=== PATIENT | female | born 1975 | race American Indian/Alaskan Native ===

== ENCOUNTER 2017-04-06 09:25 | Outpatient (CLI) | payer MEDICARE ==
--- NOTE | 2017-04-06 10:59 | Ultrasound Report ---
Bilateral digital diagnostic mammogram with CAD and bilateral whole breast loops including all 4 quadrants and subareolar regions. History: Bilateral mastodynia. This is a baseline study. Findings: The breast parenchyma is heterogeneously dense. No masses, suspicious calcifications, or architectural distortion. Ultrasound reveals no evidence of cystic or solid breast masses. Bilateral axillary lymph nodes are present. Impression: No suspicious findings. BI-RADS code: 1. Recommendation: Annual mammography.
== END 2017-04-06 09:26 | disposition home or self-care (01) ==
LOC: MAMMO 09:25
PROVIDERS: ATTEND Internal Medicine Hematology & Oncology
DX: N64.4 Mastodynia (principal); F17.200 Nicotine dependence, unspecified, uncomplicated
CPT/HCPCS: 76641; G0204; 77066

== ENCOUNTER 2018-12-02 13:33 | Inpatient (IN) | payer MEDICARE ==
[2018-12-02] MEDS ORDERED: PERCOCET 5/325 PO PRN (14:02)
[2018-12-02 15:04] LABS: Mean Corpuscular HGB Conc 35 % (30-34); Mean Corpuscular Volume 102 fl (79-97); Platelet Count 260 K/mm3 (140-440); Red Blood Count 1.95 M/mm3 (3.65-5.03); Red Cell Distribution Width 19.5 % (13.2-15.2)
[2018-12-02 15:39] LABS: % Iron Saturation 74.43 %; Alanine Aminotransferase 18 units/L (7-56); Albumin 4.3 g/dL (3.9-5); BUN/Creatinine Ratio 12; Blood Urea Nitrogen 11 mg/dL (7-17); Hemolysis Index 76
[2018-12-02 15:52] LABS: RBC Morphology Normal; Total Cells Counted 100
[2018-12-02] MEDS: HABITROL TD SCH (16:37)
[2018-12-02] MEDS: PROTONIX PO SCH (16:38)
--- NOTE | 2018-12-02 18:21 | History and Physical Report ---
History of Present Illness Date of examination: 12/02/18 Date of admission: 12/02/18 14:35 Chief complaint: Diffuse joint pain. History of present illness: Patient seen/examined, resting in bed. She presented to the office, with complaints of diffuse joint pain, due to the fact that she was not improving in the office, she was admitted to the hospital, for sxs management/control. she rated her pain at 10/10, with SCD.She will be hydrated, pain control, monitor la bs.Once stable, will d/c home. Past History Past Medical History: anemia Social history: no significant social history, single, Lives alone Family history: no significant family history Medications and Allergies Allergies Allergy/AdvReac Type Severity Reaction Status Date / Time sulfamethoxazole Allergy Intermediate Hives Verified 09/10/15 10:27 [From Bactrim] trimethoprim [From Bactrim] Allergy Intermediate Hives Verified 09/10/15 10:27 aspirin Allergy Mild Hives Verified 09/10/15 10:27 Home Medications Medication Instructions Recorded Confirmed Last Taken Type Ibuprofen [Motrin] 800 mg PO BID 09/10/15 09/10/15 09/09/15 History Oxycodone HCl/Acetaminophen 1 tab PO PRN PRN 09/10/15 09/10/15 09/08/15 History [OxyCODONE-Acetaminophen 7.5-325] Tramadol HCl [traMADol] 50 mg PO HS 09/10/15 09/10/15 09/09/15 History Active Meds: Active Medications Diphenhydramine HCl (Benadryl) 25 mg IV Q6H PRN PRN Reason: Itching Folic Acid (Folvite) [address] [facility] Heparin Sodium (Porcine) (Heparin) 5,000 unit SUB-Q Q12HR [facility]AN Hydromorphone HCl (Dilaudid) 2 mg IV Q3H PRN PRN Reason: Pain , Severe (7-10) Nicotine (Habitrol) [address] [facility] Last Admin: 12/02/18 16:37 Dose: 21 mg Documented by: Oxycodone/Acetaminophen (Percocet 5/325) 2 tab PO Q6H PRN PRN Reason: BREAKTHRU PAIN Last Admin: 12/02/18 17:25 Dose: 2 tab Documented by: Pantoprazole Sodium (Protonix) [address] [facility] Last Admin: 12/02/18 16:38 Dose: 40 mg Documented by: Sodium Chloride (Sodium Chloride Flush Syringe 10 Ml) [address] [facility] Sodium Chloride (Sodium Chloride Flush Syringe 10 Ml) 10 ml IV PRN PRN PRN Reason: LINE FLUSH Review of Systems Constitutional: fatigue, chronic pain Breasts: deferred Exam - Constitutional Vitals: Temp Pulse Resp BP Pulse Ox 98.5 F 81 16 122/68 95 12/02/18 16:52 12/02/18 16:52 12/02/18 16:52 12/02/18 16:52 12/02/18 16:52 General appearance: Present: mild distress, well-nourished - EENT Eyes: Present: PERRL ENT: hearing intact, clear oral mucosa - Neck Neck: Present: supple, normal ROM - Respiratory Respiratory effort: normal Respiratory: bilateral: CTA - Cardiovascular Heart Sounds: Present: S1 & S2. Absent: rub, click - Extremities Extremities: pulses symmetrical, No edema Peripheral Pulses: within normal limits - Abdominal General gastrointestinal: Present: soft, non-tender, non-distended, normal bowel sounds Female genitourinary: Present: deferred - Rectal Rectal Exam: deferred - Integumentary Integumentary: Present: clear, warm, dry - Musculoskeletal Musculoskeletal: gait normal, strength equal bilaterally - Psychiatric Psychiatric: appropriate mood/affect, intact judgment & insight - Neurologic Neurologic: CNII-XII intact, moves all extremities Results - Labs CBC & Chem 7: 12/02/18 14:48 12/02/18 14:48 Labs: Abnormal lab results 12/02/18 12/02/18 12/02/18 Range/Units 14:48 14:48 14:48 WBC 15.2 H (4.5-11.0) K/mm3 RBC 1.95 L (3.65-5.03) M/mm3 Hgb 7.0 L (10.1-14.3) gm/dl Hct 20.0 L (30.3-42.9) % MCV 102 H (79-97) fl MCH 36 H (28-32) pg MCHC 35 H (30-34) % RDW 19.5 H (13.2-15.2) % Lymphocytes % (Manual) 42.0 H (13.4-35.0) % Monocytes % (Manual) 8.0 H (0.0-7.3) % Lymphocytes # (Manual) 6.4 H (1.2-5.4) K/mm3 Monocytes # (Manual) 1.2 H (0.0-0.8) K/mm3 Basophils # (Manual) 0.2 H (0.0-0.1) K/mm3 Percent Retic 14.75 H (0.78-2.58) % Chloride 114.4 H (98-107) mmol/L Carbon Dioxide 20 L (22-30) mmol/L Glucose 114 H (65-100) mg/dL TIBC 176 L (250-450) mcg/dL Transferrin 138 L (192-382) mg/dl Total Bilirubin 1.60 H (0.1-1.2) mg/dL AST 42 H (5-40) units/L Lactate Dehydrogenase (91-180) units/L 12/02/18 Range/Units 14:48 WBC (4.5-11.0) K/mm3 RBC (3.65-5.03) M/mm3 Hgb (10.1-14.3) gm/dl Hct (30.3-42.9) % MCV (79-97) fl MCH (28-32) pg MCHC (30-34) % RDW (13.2-15.2) % Lymphocytes % (Manual) (13.4-35.0) % Monocytes % (Manual) (0.0-7.3) % Lymphocytes # (Manual) (1.2-5.4) K/mm3 Monocytes # (Manual) (0.0-0.8) K/mm3 Basophils # (Manual) (0.0-0.1) K/mm3 Percent Retic (0.78-2.58) % Chloride (98-107) mmol/L Carbon Dioxide (22-30) mmol/L Glucose (65-100) mg/dL TIBC (250-450) mcg/dL Transferrin (192-382) mg/dl Total Bilirubin (0.1-1.2) mg/dL AST (5-40) units/L Lactate Dehydrogenase 439 H (91-180) units/L Assessment and Plan - Patient Problems (1) Sickle cell anemia Current Visit: Yes Status: Acute Plan to address problem: same as riki. (2) Sickle cell anemia with crisis Current Visit: Yes Status: Acute Plan to address problem: monitor, correct labs, as needed. (3) Dehydration Current Visit: Yes Status: Acute Plan to address problem: hydration
[2018-12-02] MEDS: D5NS 0.2% 1,000 ML IV SCH (22:08)
[2018-12-02] MEDS: SODIUM CHLORIDE FLUSH SYRINGE 10 ML IV SCH (22:09)
[2018-12-02] MEDS: HEPARIN SUB-Q SCH (22:09)
[2018-12-02] MEDS: DILAUDID IV PRN (22:26)
[2018-12-03] MEDS: D5NS 0.2% 1,000 ML IV SCH ×6 (02:06→23:04)
[2018-12-03] MEDS: DILAUDID IV PRN ×4 (05:00→21:02)
[2018-12-03] MEDS: SODIUM CHLORIDE FLUSH SYRINGE 10 ML IV PRN (05:01)
[2018-12-03 07:03] LABS: Mean Corpuscular HGB Conc 34 % (30-34); Mean Corpuscular Volume 104 fl (79-97); Platelet Count 209 K/mm3 (140-440); Red Blood Count 1.65 M/mm3 (3.65-5.03); Red Cell Distribution Width 18.9 % (13.2-15.2)
[2018-12-03 07:06] LABS: Hematocrit 17.1 % (30.3-42.9); Hemoglobin 5.9 gm/dl (10.1-14.3)
[2018-12-03] MEDS ORDERED: NACL 0.9% 500 ML 500 ML IV ONE ×2 (07:26→17:00)
[2018-12-03] MEDS: ZOFRAN IV PRN ×2 (09:14→17:31)
[2018-12-03] MEDS: PROTONIX PO SCH (10:08)
[2018-12-03] MEDS: FOLVITE PO SCH (10:08)
[2018-12-03] MEDS: HABITROL TD SCH (10:09)
[2018-12-03] MEDS: HEPARIN SUB-Q SCH ×2 (10:09→22:47)
[2018-12-03] MEDS: SODIUM CHLORIDE FLUSH SYRINGE 10 ML IV SCH ×2 (11:54→21:03)
[2018-12-03 16:29] LABS: Basophils % (Manual) 0 % (0.0-1.8); Total Cells Counted 100
[2018-12-03 16:30] LABS: Platelet Estimate Consistent w Auto
[2018-12-03 16:31] LABS: Anisocytosis 1+; Sickle Cells 1+; Target Cells Few
--- NOTE | 2018-12-03 17:15 | Progress Note ---
Assessment and Plan - Patient Problems (1) Sickle cell anemia Current Visit: Yes Status: Acute Plan to address problem: same as bellow.[facility] blood. (2) Sickle cell anemia with crisis Current Visit: Yes Status: Acute Plan to address problem: monitor, correct labs, as needed. (3) Dehydration Status: Acute Plan to address problem: hydration Subjective Date of service: 12/03/18 Principal diagnosis: Sickle pain crisis. Interval history: Patient seen/examined, resting in bed, c/o feels dizzy, probably due to severe symptomatic anemia,Hgb 5.9, [facility]. She has a lot of Ab to her RBC.Will continue with IVF, to maintain some volume.I have cautioned her, and even offered her a bedside commode, but she declined. Objective - Constitutional Vitals: Vital Signs - 12hr 12/03/18 12/03/18 12/03/18 10:00 11:57 12:00 Temperature 97.8 F Pulse Rate 68 Respiratory 20 Rate Blood Pressure 91/48 O2 Sat by Pulse 95 96 Oximetry General appearance: Present: mild distress, well-nourished - EENT Eyes: PERRL, EOM intact ENT: hearing intact, clear oral mucosa Ears: bilateral: normal - Neck Neck: supple, normal ROM - Respiratory Respiratory effort: normal Respiratory: bilateral: CTA - Breasts Breasts: deferred - Cardiovascular Rhythm: regular Heart Sounds: Present: S1 & S2. Absent: gallop, rub Extremities: pulses intact, No edema, normal color, Full ROM - Gastrointestinal General gastrointestinal: Present: soft, non-tender, non-distended, normal bowel sounds Rectal Exam: deferred - Genitourinary Female genitourinary: deferred - Integumentary Integumentary: clear, warm, dry - Musculoskeletal Musculoskeletal: 1, strength equal bilaterally - Neurologic Neurologic: moves all extremities - Psychiatric Psychiatric: memory intact, appropriate mood/affect, intact judgment & insight - Labs CBC & Chem 7: 12/03/18 06:12 12/02/18 14:48 Labs: Abnormal lab results 12/03/18 12/03/18 Range/Units 06:12 07:47 WBC 14.4 H (4.5-11.0) K/mm3 RBC 1.65 L (3.65-5.03) M/mm3 Hgb 5.9 L* (10.1-14.3) gm/dl Hct 17.1 L* (30.3-42.9) % MCV 104 H (79-97) fl MCH 36 H (28-32) pg RDW 18.9 H (13.2-15.2) % Lymphocytes % (Manual) 37.0 H (13.4-35.0) % Seg Neutrophils # Man 8.4 H (1.8-7.7) K/mm3 Percent Retic 14.73 H (0.78-2.58) % Crossmatch See Detail Medications & Allergies - Medications Allergies/Adverse Reactions: Allergies sulfamethoxazole [From Bactrim] Allergy (Intermediate, Verified 09/10/15 10:27) Hives trimethoprim [From Bactrim] Allergy (Intermediate, Verified 09/10/15 10:27) Hives aspirin Allergy (Mild, Verified 09/10/15 10:27) Hives Home Medications: Home Medications Medication Instructions Recorded Confirmed Last Taken Type Ibuprofen [Motrin] 800 mg PO BID 09/10/15 12/03/18 09/09/15 History Oxycodone HCl/Acetaminophen 1 tab PO PRN PRN 09/10/15 12/03/18 09/08/15 History [OxyCODONE-Acetaminophen 7.5-325] Tramadol HCl [traMADol] 50 mg PO HS 09/10/15 12/03/18 09/09/15 History Active Medications: Generic Name Dose Route Start Last Admin Trade Name Freq PRN Reason Stop Dose Admin Diphenhydramine HCl 25 mg 12/02/18 14:34 Benadryl IV Q6H PRN Itching Folic Acid 1 mg 12/03/18 10:00 12/03/18 10:08 Folvite PO 1 mg QDAY [facility] Administration Heparin Sodium (Porcine) 5,000 unit 12/02/18 22:00 12/03/18 10:09 Heparin SUB-Q 5,000 unit Q12HR [facility]AN Administration Hydromorphone HCl 2 mg 12/02/18 14:02 12/03/18 14:03 Dilaudid IV 2 mg Q3H PRN Administration Pain , Severe (7-10) Dextrose/Sodium Chloride 1,000 mls @ 250 mls/hr 12/02/18 21:25 12/03/18 14:03 D5ns 0.2% IV 250 mls/hr DIRECT ESTEVAN Administration Sodium Chloride 500 mls @ 999 mls/hr 12/03/18 17:00 Nacl 0.9% 500 Ml IV 12/03/18 17:30 ONCE ONE Nicotine 21 mg 12/02/18 15:00 12/03/18 10:09 Habitrol TD 21 mg QDAY [facility] Administration Ondansetron HCl 4 mg 12/02/18 22:31 12/03/18 09:14 Zofran IV 4 mg Q8H PRN Administration Nausea And Vomiting Oxycodone/Acetaminophen 2 tab 12/02/18 14:02 12/02/18 17:25 Percocet 5/325 PO 2 tab Q6H PRN Administration BREAKTHRU PAIN Pantoprazole Sodium 40 mg 12/02/18 16:00 12/03/18 10:08 Protonix PO 40 mg QDAY [facility] Administration Sodium Chloride 10 ml 12/02/18 22:00 12/03/18 11:54 Sodium Chloride Flush Syringe 10 Ml IV 10 ml BID [facility] Administration Sodium Chloride 10 ml 12/02/18 14:02 12/03/18 05:01 Sodium Chloride Flush Syringe 10 Ml IV 10 ml PRN PRN Administration LINE FLUSH
[2018-12-04] MEDS: TYLENOL PO PRN ×2 (06:10→17:28)
[2018-12-04] MEDS: NACL 38.5 MEQ in D5W 1,000 ML IV SCH ×4 (06:13→22:33)
[2018-12-04] MEDS ORDERED: ROCEPHIN/NS 1 GM/50 ML 1 GM/50 ML BAG IV SCH (10:00)
--- NOTE | 2018-12-04 10:58 | Progress Note ---
Assessment and Plan - Patient Problems (1) Sickle cell anemia Current Visit: Yes Status: Acute Plan to address problem: same as bellow.[facility]waiting [facility] blood. (2) Sickle cell anemia with crisis Current Visit: Yes Status: Acute Plan to address problem: monitor, correct labs, as needed. (3) Dehydration Status: Acute Plan to address problem: hydration Subjective Date of service: 12/04/18 Principal diagnosis: Sickle pain crisis. Interval history: Patient seen/examined, resting in bed, c/o feels dizzy, probably due to severe symptomatic anemia,Hgb 5.9, [facility]. She has a lot of Ab to her RBC.Will continue with IVF, to maintain some volume.I have cautioned her, and even offered her a bedside commode, but she declined. Patient seen/examined, resting in bed, spiked fever last night, cultures in progress. Still no matched blood yet [facility]. Objective - Constitutional Vitals: Vital Signs - 12hr 12/03/18 12/04/18 12/04/18 23:30 05:38 05:40 Temperature 99.4 F 102.9 F H Pulse Rate 97 H 122 H Respiratory 18 20 Rate Blood Pressure 97/50 O2 Sat by Pulse 91 82 L Oximetry 12/04/18 06:10 Temperature Pulse Rate Respiratory 18 Rate Blood Pressure O2 Sat by Pulse Oximetry General appearance: Present: mild distress - EENT Eyes: PERRL, EOM intact ENT: hearing intact, clear oral mucosa Ears: bilateral: normal - Neck Neck: supple, normal ROM - Respiratory Respiratory effort: normal Respiratory: bilateral: CTA - Breasts Breasts: deferred - Cardiovascular Rhythm: regular Heart Sounds: Present: S1 & S2. Absent: gallop, rub Extremities: pulses intact, No edema, normal color, Full ROM - Gastrointestinal General gastrointestinal: Present: soft, non-tender, non-distended, normal bowel sounds Rectal Exam: deferred - Genitourinary Female genitourinary: deferred - Integumentary Integumentary: clear, warm, dry - Musculoskeletal Musculoskeletal: 1, strength equal bilaterally - Neurologic Neurologic: moves all extremities - Psychiatric Psychiatric: memory intact, appropriate mood/affect, intact judgment & insight - Labs CBC & Chem 7: 12/03/18 06:12 12/02/18 14:48 Labs: Abnormal lab results 12/03/18 12/04/18 Range/Units 06:12 06:32 Lymphocytes % (Manual) 37.0 H (13.4-35.0) % Seg Neutrophils # Man 8.4 H (1.8-7.7) K/mm3 Percent Retic 16.18 H (0.78-2.58) % Medications & Allergies - Medications Allergies/Adverse Reactions: Allergies sulfamethoxazole [From Bactrim] Allergy (Intermediate, Verified 09/10/15 10:27) Hives trimethoprim [From Bactrim] Allergy (Intermediate, Verified 09/10/15 10:27) Hives aspirin Allergy (Mild, Verified 09/10/15 10:27) Hives Home Medications: Home Medications Medication Instructions Recorded Confirmed Last Taken Type Ibuprofen [Motrin] 800 mg PO BID 09/10/15 12/03/18 09/09/15 History Oxycodone HCl/Acetaminophen 1 tab PO PRN PRN 09/10/15 12/03/18 09/08/15 History [OxyCODONE-Acetaminophen 7.5-325] Tramadol HCl [traMADol] 50 mg PO HS 09/10/15 12/03/18 09/09/15 History Active Medications: Generic Name Dose Route Start Last Admin Trade Name Freq PRN Reason Stop Dose Admin Acetaminophen 650 mg 12/04/18 06:04 12/04/18 06:10 Tylenol PO 650 mg Q6H PRN Administration Pain, Mild (1-3) Diphenhydramine HCl 25 mg 12/02/18 14:34 Benadryl IV Q6H PRN Itching Folic Acid 1 mg 12/03/18 10:00 12/03/18 10:08 Folvite PO 1 mg QDAY [facility] Administration Heparin Sodium (Porcine) 5,000 unit 12/02/18 22:00 12/03/18 22:47 Heparin SUB-Q 5,000 unit Q12HR [facility]AN Administration Hydromorphone HCl 2 mg 12/02/18 14:02 12/03/18 21:02 Dilaudid IV 2 mg Q3H PRN Administration Pain , Severe (7-10) Sodium Chloride 38.5 meq/ 1,009.625 mls @ 250 mls/hr 12/04/18 06:00 12/04/18 06:13 Dextrose IV 250 mls/hr DIRECT [facility]AN Administration Ceftriaxone Sodium 1 gm in 50 mls @ 100 mls/hr 12/04/18 10:00 Rocephin/Ns 1 Gm/50 Ml IV Q24HR [facility] Protocol Nicotine 21 mg 12/02/18 15:00 12/03/18 10:09 Habitrol TD 21 mg QDAY [facility] Administration Ondansetron HCl 4 mg 12/02/18 22:31 12/03/18 17:31 Zofran IV 4 mg Q8H PRN Administration Nausea And Vomiting Oxycodone/Acetaminophen 2 tab 12/02/18 14:02 12/02/18 17:25 Percocet 5/325 PO 2 tab Q6H PRN Administration BREAKTHRU PAIN Pantoprazole Sodium 40 mg 12/02/18 16:00 12/03/18 10:08 Protonix PO 40 mg QDAY [facility] Administration Sodium Chloride 10 ml 12/02/18 22:00 12/03/18 21:03 Sodium Chloride Flush Syringe 10 Ml IV 10 ml BID [facility] Administration Sodium Chloride 10 ml 12/02/18 14:02 12/03/18 05:01 Sodium Chloride Flush Syringe 10 Ml IV 10 ml PRN PRN Administration LINE FLUSH
[2018-12-04] MEDS: FOLVITE PO SCH (11:19)
[2018-12-04] MEDS: HABITROL TD SCH (11:19)
[2018-12-04] MEDS: PROTONIX PO SCH (11:19)
[2018-12-04] MEDS: ROCEPHIN/NS 1 GM/50 ML 1 GM/50 ML BAG IV SCH (11:19)
[2018-12-04] MEDS: HEPARIN SUB-Q SCH ×2 (11:19→22:34)
[2018-12-04] MEDS: SODIUM CHLORIDE FLUSH SYRINGE 10 ML IV SCH ×2 (11:20→22:34)
[2018-12-04] MEDS: DILAUDID IV PRN ×2 (12:39→17:41)
[2018-12-05] MEDS: TYLENOL PO PRN (04:00)
[2018-12-05] MEDS: DILAUDID IV PRN ×5 (04:01→21:41)
[2018-12-05] MEDS: NACL 38.5 MEQ in D5W 1,000 ML IV SCH ×3 (09:24→18:37)
[2018-12-05] MEDS: ROCEPHIN/NS 1 GM/50 ML 1 GM/50 ML BAG IV SCH (09:26)
[2018-12-05] MEDS: HEPARIN SUB-Q SCH ×2 (09:26→21:41)
[2018-12-05] MEDS: HABITROL TD SCH (09:27)
[2018-12-05] MEDS: PROTONIX PO SCH (09:27)
[2018-12-05] MEDS: FOLVITE PO SCH (09:27)
[2018-12-05] MEDS: SODIUM CHLORIDE FLUSH SYRINGE 10 ML IV SCH ×2 (11:24→21:41)
--- NOTE | 2018-12-05 19:42 | Progress Note ---
Assessment and Plan - Patient Problems (1) Sickle cell anemia Current Visit: Yes Status: Acute Plan to address problem: same as bellow.[facility]wait[facility] blood. see notes. (2) Sickle cell anemia with crisis Current Visit: Yes Status: Acute Plan to address problem: monitor, correct labs, as needed. (3) Dehydration Status: Acute Plan to address problem: hydration Subjective Date of service: 12/05/18 Principal diagnosis: Sickle pain crisis. Interval history: Patient seen/examined, resting in bed, c/o feels dizzy, probably due to severe symptomatic anemia,Hgb 5.9, [facility]. She has a lot of Ab to her RBC.Will continue with IVF, to maintain some volume.I have cautioned her, and even offered her a bedside commode, but she declined. Patient seen/examined, resting in bed, spiked fever last night, cultures in progress. Still no matched [facility]. patient seen/examined, resting in bed, still weak, and still no matched blood. I have spoken to the blood bank, and as per the [facility], 1matched unit found, and will be shipped from [facility] in the next day ,or so.She has tremendous amount of rare antibodies. Objective - Constitutional Vitals: Vital Signs - 12hr 12/05/18 12/05/18 12/05/18 08:05 08:17 11:56 Temperature 100.3 F H Pulse Rate 107 H Pulse Rate [ 102 H Left Radial] Respiratory 16 20 Rate Respiratory 20 Rate [Left Hip] Blood Pressure 104/55 O2 Sat by Pulse 91 93 Oximetry 12/05/18 17:07 Temperature 100.0 F H Pulse Rate 107 H Pulse Rate [ Left Radial] Respiratory 20 Rate Respiratory Rate [Left Hip] Blood Pressure 103/59 O2 Sat by Pulse 92 Oximetry General appearance: Present: mild distress - EENT Eyes: PERRL, EOM intact ENT: hearing intact, clear oral mucosa Ears: bilateral: normal - Neck Neck: supple, normal ROM - Respiratory Respiratory: bilateral: diminished - Breasts Breasts: deferred - Cardiovascular Rhythm: regular Heart Sounds: Present: S1 & S2. Absent: gallop, rub Extremities: pulses intact, No edema, normal color, Full ROM - Gastrointestinal General gastrointestinal: Present: soft, non-tender, non-distended, normal bowel sounds Rectal Exam: deferred - Genitourinary Female genitourinary: deferred - Integumentary Integumentary: clear, warm, dry - Musculoskeletal Musculoskeletal: 1, strength equal bilaterally - Neurologic Neurologic: moves all extremities - Psychiatric Psychiatric: memory intact, appropriate mood/affect, intact judgment & insight - Labs CBC & Chem 7: 12/03/18 06:12 12/02/18 14:48 Labs: Abnormal lab results 12/05/18 Range/Units 05:38 Percent Retic 16.86 H (0.78-2.58) % Medications & Allergies - Medications Allergies/Adverse Reactions: Allergies sulfamethoxazole [From Bactrim] Allergy (Intermediate, Verified 09/10/15 10:27) Hives trimethoprim [From Bactrim] Allergy (Intermediate, Verified 09/10/15 10:27) Hives aspirin Allergy (Mild, Verified 09/10/15 10:27) Hives Home Medications: Home Medications Medication Instructions Recorded Confirmed Last Taken Type Ibuprofen [Motrin] 800 mg PO BID 09/10/15 12/03/18 09/09/15 History Oxycodone HCl/Acetaminophen 1 tab PO PRN PRN 09/10/15 12/03/18 09/08/15 History [OxyCODONE-Acetaminophen 7.5-325] Tramadol HCl [traMADol] 50 mg PO HS 09/10/15 12/03/18 09/09/15 History Active Medications: Generic Name Dose Route Start Last Admin Trade Name Freq PRN Reason Stop Dose Admin Acetaminophen 650 mg 12/04/18 06:04 12/05/18 04:00 Tylenol PO 650 mg Q6H PRN Administration Pain, Mild (1-3) Diphenhydramine HCl 25 mg 12/02/18 14:34 Benadryl IV Q6H PRN Itching Folic Acid 1 mg 12/03/18 10:00 12/05/18 09:27 Folvite PO 1 mg QDAY [facility] Administration Heparin Sodium (Porcine) 5,000 unit 12/02/18 22:00 12/05/18 09:26 Heparin SUB-Q 5,000 unit Q12HR ESTEVAN Administration Hydromorphone HCl 2 mg 12/02/18 14:02 12/05/18 15:43 Dilaudid IV 2 mg Q3H PRN Administration Pain , Severe (7-10) Sodium Chloride 38.5 meq/ 1,009.625 mls @ 250 mls/hr 12/04/18 06:00 12/05/18 18:37 Dextrose IV 250 mls/hr DIRECT ESTEVAN Administration Ceftriaxone Sodium 1 gm in 50 mls @ 100 mls/hr 12/04/18 10:00 12/05/18 09:26 Rocephin/Ns 1 Gm/50 Ml IV 100 mls/hr Q24HR ESTEVAN Administration Protocol Nicotine 21 mg 12/02/18 15:00 12/05/18 09:27 Habitrol TD 21 mg QDAY ESTEVAN Administration Ondansetron HCl 4 mg 12/02/18 22:31 12/03/18 17:31 Zofran IV 4 mg Q8H PRN Administration Nausea And Vomiting Oxycodone/Acetaminophen 2 tab 12/02/18 14:02 12/02/18 17:25 Percocet 5/325 PO 2 tab Q6H PRN Administration BREAKTHRU PAIN Pantoprazole Sodium 40 mg 12/02/18 16:00 12/05/18 09:27 Protonix PO 40 mg QDAY ESTEVAN Administration Sodium Chloride 10 ml 12/02/18 22:00 12/05/18 11:24 Sodium Chloride Flush Syringe 10 Ml IV Not Given BID ESTEVAN Sodium Chloride 10 ml 12/02/18 14:02 12/03/18 05:01 Sodium Chloride Flush Syringe 10 Ml IV 10 ml PRN PRN Administration LINE FLUSH
[2018-12-06] MEDS: NACL 38.5 MEQ in D5W 1,000 ML IV SCH ×3 (02:01→09:52)
[2018-12-06] MEDS: DILAUDID IV PRN ×5 (02:05→23:20)
[2018-12-06] MEDS: PROTONIX PO SCH (10:19)
[2018-12-06] MEDS: FOLVITE PO SCH (10:19)
[2018-12-06] MEDS: HEPARIN SUB-Q SCH ×2 (10:19→21:29)
[2018-12-06] MEDS: HABITROL TD SCH (10:19)
[2018-12-06] MEDS: ROCEPHIN/NS 1 GM/50 ML 1 GM/50 ML BAG IV SCH (10:19)
[2018-12-06] MEDS: ZOFRAN IV PRN ×2 (10:29→18:43)
[2018-12-06] MEDS: SODIUM CHLORIDE FLUSH SYRINGE 10 ML IV SCH ×2 (10:33→21:25)
[2018-12-06] MEDS: D5NS 0.2% 1,000 ML IV SCH ×2 (16:21→23:49)
--- NOTE | 2018-12-06 19:58 | Progress Note ---
Assessment and Plan - Patient Problems (1) Sickle cell anemia Current Visit: Yes Status: Acute Plan to address problem: same as bellow.[facility]. see notes. i unit now ready. (2) Sickle cell anemia with crisis Current Visit: Yes Status: Acute Plan to address problem: monitor, correct labs, as needed. (3) Dehydration Status: Acute Plan to address problem: hydration Subjective Date of service: 12/06/18 Principal diagnosis: Sickle pain crisis. Interval history: Patient seen/examined, resting in bed, c/o feels dizzy, probably due to severe symptomatic anemia,Hgb 5.9, [facility]. She has a lot of Ab to her RBC.Will continue with IVF, to maintain some volume.I have cautioned her, and even offered her a bedside commode, but she declined. Patient seen/examined, resting in bed, spiked fever last night, cultures in progress. Still no matched blood yet from the [facility]. patient seen/examined, resting in bed, still weak, and still no matched blood. I have spoken to the blood bank, and as per the [facility], 1matched unit found, and will be shipped from [facility] in the next day ,or so.She has tremendous amount of rare antibodies. Patient seen/examined, resting in bed, case d/w her, and i have d/w the [facility] bank. 1unit of lood ready at the blood bank since 6pm. There may be another unit possibly avalable in a day,or so. I will proceed to transfuse with the ready blood. patient is pushing to go home, and if the remaining blood is not ready by tomorrow, will d/c her home. Objective - Constitutional Vitals: Vital Signs - 12hr 12/06/18 12/06/18 12/06/18 08:00 10:28 11:24 Temperature 98.7 F Pulse Rate 120 H Respiratory 16 16 18 Rate Blood Pressure 119/47 O2 Sat by Pulse 95 80 L Oximetry 12/06/18 12/06/18 12:00 17:02 Temperature 99.9 F H Pulse Rate 110 H Respiratory 16 18 Rate Blood Pressure 112/61 O2 Sat by Pulse 95 93 Oximetry General appearance: Present: mild distress, well-nourished - EENT Eyes: PERRL, EOM intact ENT: hearing intact, clear oral mucosa Ears: bilateral: normal - Neck Neck: supple, normal ROM - Respiratory Respiratory effort: normal Respiratory: bilateral: CTA - Breasts Breasts: deferred - Cardiovascular Rhythm: regular Heart Sounds: Present: S1 & S2. Absent: gallop, rub Extremities: pulses intact, No edema, normal color, Full ROM - Gastrointestinal General gastrointestinal: Present: soft, non-tender, non-distended, normal bowel sounds Rectal Exam: deferred - Genitourinary Female genitourinary: deferred - Integumentary Integumentary: clear, warm, dry - Musculoskeletal Musculoskeletal: 1, strength equal bilaterally - Neurologic Neurologic: moves all extremities - Psychiatric Psychiatric: memory intact, appropriate mood/affect, intact judgment & insight - Labs CBC & Chem 7: 12/03/18 06:12 12/02/18 14:48 Labs: Abnormal lab results 12/03/18 12/06/18 12/06/18 Range/Units 07:47 06:25 12:49 Percent Retic 20.02 H (0.78-2.58) % Crossmatch See Detail See Detail Medications & Allergies - Medications Allergies/Adverse Reactions: Allergies sulfamethoxazole [From Bactrim] Allergy (Intermediate, Verified 09/10/15 10:27) Hives trimethoprim [From Bactrim] Allergy (Intermediate, Verified 09/10/15 10:27) Hives aspirin Allergy (Mild, Verified 09/10/15 10:27) Hives Home Medications: Home Medications Medication Instructions Recorded Confirmed Last Taken Type Ibuprofen [Motrin] 800 mg PO BID 09/10/15 12/03/18 09/09/15 History Oxycodone HCl/Acetaminophen 1 tab PO PRN PRN 09/10/15 12/03/18 09/08/15 History [OxyCODONE-Acetaminophen 7.5-325] Tramadol HCl [traMADol] 50 mg PO HS 09/10/15 12/03/18 09/09/15 History Active Medications: Generic Name Dose Route Start Last Admin Trade Name Freq PRN Reason Stop Dose Admin Acetaminophen 650 mg 12/04/18 06:04 12/05/18 04:00 Tylenol PO 650 mg Q6H PRN Administration Pain, Mild (1-3) Diphenhydramine HCl 25 mg 12/02/18 14:34 Benadryl IV Q6H PRN Itching Folic Acid 1 mg 12/03/18 10:00 12/06/18 10:19 Folvite PO 1 mg QDAY ESTEVAN Administration Heparin Sodium (Porcine) 5,000 unit 12/02/18 22:00 12/06/18 10:19 Heparin SUB-Q 5,000 unit Q12HR ESTEVAN Administration Hydromorphone HCl 2 mg 12/02/18 14:02 12/06/18 18:04 Dilaudid IV 2 mg Q3H PRN Administration Pain , Severe (7-10) Ceftriaxone Sodium 1 gm in 50 mls @ 100 mls/hr 12/04/18 10:00 12/06/18 10:19 Rocephin/Ns 1 Gm/50 Ml IV 100 mls/hr Q24HR ESTEVAN Administration Protocol Dextrose/Sodium Chloride 1,000 mls @ 250 mls/hr 12/06/18 14:00 12/06/18 16:21 D5ns 0.2% IV 250 mls/hr DIRECT ESTEVAN Administration Nicotine 21 mg 12/02/18 15:00 12/06/18 10:19 Habitrol TD 21 mg QDAY ESTEVAN Administration Ondansetron HCl 4 mg 12/02/18 22:31 12/06/18 18:43 Zofran IV 4 mg Q8H PRN Administration Nausea And Vomiting Oxycodone/Acetaminophen 2 tab 12/02/18 14:02 12/02/18 17:25 Percocet 5/325 PO 2 tab Q6H PRN Administration BREAKTHRU PAIN Pantoprazole Sodium 40 mg 12/02/18 16:00 12/06/18 10:19 Protonix PO 40 mg QDAY ESTEVAN Administration Sodium Chloride 10 ml 12/02/18 22:00 12/06/18 10:33 Sodium Chloride Flush Syringe 10 Ml IV 10 ml BID ESTEVAN Administration Sodium Chloride 10 ml 12/02/18 14:02 12/03/18 05:01 Sodium Chloride Flush Syringe 10 Ml IV 10 ml PRN PRN Administration LINE FLUSH
[2018-12-06] MEDS: TYLENOL PO PRN (20:24)
[2018-12-06] MEDS: BENADRYL IV PRN (20:26)
[2018-12-06] MEDS: SODIUM CHLORIDE FLUSH SYRINGE 10 ML IV PRN (20:28)
[2018-12-07] MEDS: D5NS 0.2% 1,000 ML IV SCH ×3 (04:00→15:58)
[2018-12-07] MEDS: DILAUDID IV PRN ×4 (06:01→20:55)
[2018-12-07] MEDS: BENADRYL IV PRN ×3 (06:03→20:56)
[2018-12-07] MEDS: SODIUM CHLORIDE FLUSH SYRINGE 10 ML IV PRN ×2 (06:05→20:56)
[2018-12-07] MEDS: FOLVITE PO SCH (10:31)
[2018-12-07] MEDS: SODIUM CHLORIDE FLUSH SYRINGE 10 ML IV SCH ×2 (10:31→21:01)
[2018-12-07] MEDS: HABITROL TD SCH (10:31)
[2018-12-07] MEDS: ROCEPHIN/NS 1 GM/50 ML 1 GM/50 ML BAG IV SCH (10:31)
[2018-12-07] MEDS: PROTONIX PO SCH (10:31)
[2018-12-07] MEDS: HEPARIN SUB-Q SCH ×2 (10:32→21:00)
[2018-12-07 12:01] LABS: Hematocrit 15.2 % (30.3-42.9); Hemoglobin 5.1 gm/dl (10.1-14.3)
[2018-12-07] MEDS ORDERED: NACL 0.9% 500 ML 500 ML IV ONE (22:23)
--- NOTE | 2018-12-07 23:34 | Progress Note ---
Assessment and Plan - Patient Problems (1) Sickle cell anemia Current Visit: Yes Status: Acute Plan to address problem: same as bellow.[facility] blood. see notes. i unit now ready. (2) Sickle cell anemia with crisis Current Visit: Yes Status: Acute Plan to address problem: monitor, correct labs, as needed. (3) Dehydration Status: Acute Plan to address problem: hydration Subjective Date of service: 12/07/18 Principal diagnosis: Sickle pain crisis. Interval history: Patient seen/examined, resting in bed, c/o feels dizzy, probably due to severe symptomatic anemia,Hgb 5.9, [facility]. She has a lot of Ab to her RBC.Will continue with IVF, to maintain some volume.I have cautioned her, and even offered her a bedside commode, but she declined. Patient seen/examined, resting in bed, spiked fever last night, cultures in progress. Still no matched blood yet from the [facility]. patient seen/examined, resting in bed, still weak, and still no matched blood. I have spoken to the blood bank, and as per the [facility], 1matched unit found, and will be shipped from [facility] in the next day ,or so.She has tremendous amount of rare antibodies. Patient seen/examined, resting in bed, case d/w her, and i have d/w the [facility] bank. 1unit of lood ready at the blood bank since 6pm. There may be another unit possibly avalable in a day,or so. I will proceed to transfuse with the ready blood. patient is pushing to go home, and if the remaining blood is not ready by tomorrow, will d/c her home. patient seen/examined, resting in bed, s/p 1unit PRBC, and about to get the second unit. As per [facility], no more matched unit blood avaliable. will recheck H/h in am, and if she feels better, will d/c home, and follow up ion the office. Objective - Constitutional Vitals: Vital Signs - 12hr 12/07/18 12/07/18 11:57 17:19 Temperature 99.2 F 99.7 F H Pulse Rate 110 H 101 H Respiratory 18 18 Rate Blood Pressure 111/57 105/55 O2 Sat by Pulse 85 88 Oximetry General appearance: Present: mild distress, well-nourished - EENT Eyes: PERRL, EOM intact ENT: hearing intact, clear oral mucosa Ears: bilateral: normal - Neck Neck: supple, normal ROM - Respiratory Respiratory effort: normal Respiratory: bilateral: CTA - Breasts Breasts: deferred - Cardiovascular Rhythm: regular Heart Sounds: Present: S1 & S2. Absent: gallop, rub Extremities: pulses intact, No edema, normal color, Full ROM - Gastrointestinal General gastrointestinal: Present: soft, non-tender, non-distended, normal bowel sounds Rectal Exam: deferred - Genitourinary Female genitourinary: deferred - Integumentary Integumentary: clear, warm, dry - Musculoskeletal Musculoskeletal: 1, strength equal bilaterally - Neurologic Neurologic: moves all extremities - Psychiatric Psychiatric: memory intact, appropriate mood/affect, intact judgment & insight - Labs CBC & Chem 7: 12/07/18 11:37 12/02/18 14:48 Labs: Abnormal lab results 12/06/18 12/07/18 12/07/18 Range/Units 12:49 06:00 11:37 Hgb 5.1 L* (10.1-14.3) gm/dl Hct 15.2 L* (30.3-42.9) % Percent Retic 19.62 H (0.78-2.58) % Crossmatch See Detail Medications & Allergies - Medications Allergies/Adverse Reactions: Allergies sulfamethoxazole [From Bactrim] Allergy (Intermediate, Verified 09/10/15 10:27) Hives trimethoprim [From Bactrim] Allergy (Intermediate, Verified 09/10/15 10:27) Hives aspirin Allergy (Mild, Verified 09/10/15 10:27) Hives Home Medications: Home Medications Medication Instructions Recorded Confirmed Last Taken Type Ibuprofen [Motrin] 800 mg PO BID 09/10/15 12/03/18 09/09/15 History Oxycodone HCl/Acetaminophen 1 tab PO PRN PRN 09/10/15 12/03/18 09/08/15 History [OxyCODONE-Acetaminophen 7.5-325] Tramadol HCl [traMADol] 50 mg PO HS 09/10/15 12/03/18 09/09/15 History Active Medications: Generic Name Dose Route Start Last Admin Trade Name Freq PRN Reason Stop Dose Admin Acetaminophen 650 mg 12/04/18 06:04 12/06/18 20:24 Tylenol PO 650 mg Q6H PRN Administration Pain, Mild (1-3) Diphenhydramine HCl 25 mg 12/02/18 14:34 12/07/18 20:56 Benadryl IV 25 mg Q6H PRN Administration Itching Folic Acid 1 mg 12/03/18 10:00 12/07/18 10:31 Folvite PO 1 mg QDAY ESTEVAN Administration Hydromorphone HCl 2 mg 12/02/18 14:02 12/07/18 20:55 Dilaudid IV 2 mg Q3H PRN Administration Pain , Severe (7-10) Ceftriaxone Sodium 1 gm in 50 mls @ 100 mls/hr 12/04/18 10:00 12/07/18 10:31 Rocephin/Ns 1 Gm/50 Ml IV 100 mls/hr Q24HR ESTEVAN Administration Protocol Dextrose/Sodium Chloride 1,000 mls @ 250 mls/hr 12/06/18 14:00 12/07/18 15:58 D5ns 0.2% IV 250 mls/hr DIRECT ESTEVAN Administration Nicotine 21 mg 12/02/18 15:00 12/07/18 10:31 Habitrol TD 21 mg QDAY ESTEVAN Administration Ondansetron HCl 4 mg 12/02/18 22:31 12/06/18 18:43 Zofran IV 4 mg Q8H PRN Administration Nausea And Vomiting Oxycodone/Acetaminophen 2 tab 12/02/18 14:02 12/02/18 17:25 Percocet 5/325 PO 2 tab Q6H PRN Administration BREAKTHRU PAIN Pantoprazole Sodium 40 mg 12/02/18 16:00 12/07/18 10:31 Protonix PO 40 mg QDAY ESTEVAN Administration Sodium Chloride 10 ml 12/02/18 22:00 12/07/18 21:01 Sodium Chloride Flush Syringe 10 Ml IV 10 ml BID ESTEVAN Administration Sodium Chloride 10 ml 12/02/18 14:02 12/07/18 20:56 Sodium Chloride Flush Syringe 10 Ml IV 10 ml PRN PRN Administration LINE FLUSH
[2018-12-08] MEDS: D5NS 0.2% 1,000 ML IV SCH ×5 (02:41→21:33)
[2018-12-08] MEDS: DILAUDID IV PRN ×4 (02:43→21:27)
[2018-12-08 06:20] LABS: Hematocrit 16.3 % (30.3-42.9); Hemoglobin 5.4 gm/dl (10.1-14.3)
[2018-12-08] MEDS: PROTONIX PO SCH (10:49)
[2018-12-08] MEDS: ROCEPHIN/NS 1 GM/50 ML 1 GM/50 ML BAG IV SCH (10:49)
[2018-12-08] MEDS: BENADRYL IV PRN ×2 (10:49→17:19)
[2018-12-08] MEDS: FOLVITE PO SCH (10:49)
[2018-12-08] MEDS: HABITROL TD SCH (10:49)
[2018-12-08] MEDS: SODIUM CHLORIDE FLUSH SYRINGE 10 ML IV SCH ×2 (10:50→21:23)
[2018-12-08] MEDS ORDERED: NACL 0.9% 500 ML 500 ML IV SCH (18:47)
--- NOTE | 2018-12-08 18:52 | Progress Note ---
Assessment and Plan - Patient Problems (1) Sickle cell anemia Current Visit: Yes Status: Acute Plan to address problem: same as bellow.[facility] blood. see notes. i unit now ready. (2) Sickle cell anemia with crisis Current Visit: Yes Status: Acute Plan to address problem: monitor, correct labs, as needed. (3) Dehydration Status: Acute Plan to address problem: hydration Subjective Date of service: 12/08/18 Principal diagnosis: Sickle pain crisis. Interval history: Patient seen/examined, resting in bed, c/o feels dizzy, probably due to severe symptomatic anemia,Hgb 5.9, awaiting [facility]. She has a lot of Ab to her RBC.Will continue with IVF, to maintain some volume.I have cautioned her, and even offered her a bedside commode, but she declined. Patient seen/examined, resting in bed, spiked fever last night, cultures in progress. Still no matched blood yet from the [facility]. patient seen/examined, resting in bed, still weak, and still no matched blood. I have spoken to the blood bank, and as per the [facility], 1matched unit found, and will be shipped from [facility] in the next day ,or so.She has tremendous amount of rare antibodies. Patient seen/examined, resting in bed, case d/w her, and i have d/w the [employer] bank. 1unit of lood ready at the blood bank since 6pm. There may be another unit possibly avalable in a day,or so. I will proceed to transfuse with the ready blood. patient is pushing to go home, and if the remaining blood is not ready by tomorrow, will d/c her home. patient seen/examined, resting in bed, s/p 1unit PRBC, and about to get the second unit. As per [facility], no more matched unit blood avaliable. will recheck H/h in am, and if she feels better, will d/c home, and follow up ion the office. Patient seen/examined, resting in bed, labs recviewed, case d/w her regarding the need for more blood. She is aware that it may take a longer time as per [facility]. Patient has a lot ab No other complaints. Dr Yip will cover my rounds from Wednesday to [place]. i am avalable on the phone. This same notice is left on the floor.. Objective - Constitutional Vitals: Vital Signs - 12hr 12/08/18 12/08/18 12/08/18 10:15 12:38 18:18 Temperature 98.1 F 99.7 F H Pulse Rate 90 87 Respiratory 16 18 Rate Blood Pressure 126/62 118/65 O2 Sat by Pulse 96 92 91 Oximetry General appearance: Present: mild distress, well-nourished - EENT Eyes: PERRL, EOM intact ENT: hearing intact, clear oral mucosa Ears: bilateral: normal - Neck Neck: supple, normal ROM - Respiratory Respiratory effort: normal Respiratory: bilateral: CTA - Breasts Breasts: deferred - Cardiovascular Rhythm: regular Heart Sounds: Present: S1 & S2. Absent: gallop, rub Extremities: pulses intact, No edema, normal color, Full ROM - Gastrointestinal General gastrointestinal: Present: soft, non-tender, non-distended, normal bowel sounds Rectal Exam: deferred - Genitourinary Female genitourinary: deferred - Integumentary Integumentary: clear, warm, dry - Musculoskeletal Musculoskeletal: 1, strength equal bilaterally - Neurologic Neurologic: moves all extremities - Psychiatric Psychiatric: memory intact, appropriate mood/affect, intact judgment & insight - Labs CBC & Chem 7: 12/08/18 05:12 12/02/18 14:48 Labs: Abnormal lab results 12/06/18 12/08/18 Range/Units 12:49 05:12 Hgb 5.4 L* (10.1-14.3) gm/dl Hct 16.3 L* (30.3-42.9) % Percent Retic 18.71 H (0.78-2.58) % Crossmatch See Detail Medications & Allergies - Medications Allergies/Adverse Reactions: Allergies sulfamethoxazole [From Bactrim] Allergy (Intermediate, Verified 09/10/15 10:27) Hives trimethoprim [From Bactrim] Allergy (Intermediate, Verified 09/10/15 10:27) Hives aspirin Allergy (Mild, Verified 09/10/15 10:27) Hives Home Medications: Home Medications Medication Instructions Recorded Confirmed Last Taken Type Ibuprofen [Motrin] 800 mg PO BID 09/10/15 12/03/18 09/09/15 History Oxycodone HCl/Acetaminophen 1 tab PO PRN PRN 09/10/15 12/03/18 09/08/15 History [OxyCODONE-Acetaminophen 7.5-325] Tramadol HCl [traMADol] 50 mg PO HS 09/10/15 12/03/18 09/09/15 History Active Medications: Generic Name Dose Route Start Last Admin Trade Name Freq PRN Reason Stop Dose Admin Acetaminophen 650 mg 12/04/18 06:04 12/06/18 20:24 Tylenol PO 650 mg Q6H PRN Administration Pain, Mild (1-3) Diphenhydramine HCl 25 mg 12/02/18 14:34 12/08/18 17:19 Benadryl IV 25 mg Q6H PRN Administration Itching Folic Acid 1 mg 12/03/18 10:00 12/08/18 10:49 Folvite PO 1 mg QDAY ESTEVAN Administration Hydromorphone HCl 2 mg 12/02/18 14:02 12/08/18 17:18 Dilaudid IV 2 mg Q3H PRN Administration Pain , Severe (7-10) Ceftriaxone Sodium 1 gm in 50 mls @ 100 mls/hr 12/04/18 10:00 12/08/18 10:49 Rocephin/Ns 1 Gm/50 Ml IV 100 mls/hr Q24HR ESTEVAN Administration Protocol Dextrose/Sodium Chloride 1,000 mls @ 250 mls/hr 12/06/18 14:00 12/08/18 17:19 D5ns 0.2% IV 250 mls/hr DIRECT ESTEVAN Administration Nicotine 21 mg 12/02/18 15:00 12/08/18 10:49 Habitrol TD 21 mg QDAY ESTEVAN Administration Ondansetron HCl 4 mg 12/02/18 22:31 12/06/18 18:43 Zofran IV 4 mg Q8H PRN Administration Nausea And Vomiting Oxycodone/Acetaminophen 2 tab 12/02/18 14:02 12/02/18 17:25 Percocet 5/325 PO 2 tab Q6H PRN Administration BREAKTHRU PAIN Pantoprazole Sodium 40 mg 12/02/18 16:00 12/08/18 10:49 Protonix PO 40 mg QDAY ESTEVAN Administration Sodium Chloride 10 ml 12/02/18 22:00 12/08/18 10:50 Sodium Chloride Flush Syringe 10 Ml IV 10 ml BID ESTEVAN Administration Sodium Chloride 10 ml 12/02/18 14:02 12/07/18 20:56 Sodium Chloride Flush Syringe 10 Ml IV 10 ml PRN PRN Administration LINE FLUSH
[2018-12-08] MEDS: PERIACTIN PO SCH (21:23)
[2018-12-09] MEDS: DILAUDID IV PRN ×3 (05:11→22:43)
[2018-12-09] MEDS: PERIACTIN PO SCH ×3 (05:12→22:07)
[2018-12-09] MEDS: D5NS 0.2% 1,000 ML IV SCH ×5 (05:12→18:42)
[2018-12-09] MEDS: FOLVITE PO SCH (09:28)
[2018-12-09] MEDS: PROTONIX PO SCH (09:28)
[2018-12-09] MEDS: ROCEPHIN/NS 1 GM/50 ML 1 GM/50 ML BAG IV SCH (09:28)
[2018-12-09] MEDS: SODIUM CHLORIDE FLUSH SYRINGE 10 ML IV SCH ×2 (09:28→22:49)
[2018-12-09] MEDS: HABITROL TD SCH (09:28)
[2018-12-09 10:46] LABS: Hematocrit 17.3 % (30.3-42.9); Hemoglobin 5.7 gm/dl (10.1-14.3)
--- NOTE | 2018-12-09 13:44 | Hem/Onc Progress Note ---
Assessment and Plan anemia pending prbc Patient seen/examined, resting in bed, c/o feels dizzy, probably due to severe symptomatic anemia,Hgb 5.7, [facility]. She has a lot of Ab to her RBC.Will continue with IVF, to maintain some volume. pt says she tried Hydrea in past - had side effects and stopped d/w her reg trial while in hospital - pt refused says gets PRBC twice a year. reviewed Iron levels reports will await PRBC and return of dr Wise - Patient Problems (1) Sickle cell anemia Current Visit: Yes Status: Acute Subjective Date of service: 12/09/18 Principal diagnosis: sickle cell anemia Interval history: pending PRBC d/w RN Objective - Constitutional Vitals: Last Vital Signs Temp 98.7 F 12/09/18 11:49 Pulse 85 12/09/18 11:50 Resp 20 12/09/18 11:49 BP 133/72 12/09/18 11:49 Pulse Ox 97 12/09/18 11:50 Pain Intensity (0-10): denies any pain General appearance: no acute distress Performance status: 3-limited selfcare - EENT Eyes: EOM intact ENT: clear oral mucosa Lymph node exam: negative cervical - Neck Neck: normal ROM - Respiratory Respiratory effort: Positive: normal Respiratory: negative: CTA - Cardiovascular Heart Sounds: Present: S1 & S2 Extremities: No edema - Gastrointestinal General gastrointestinal: Present: soft, non-tender Rectal Exam: deferred - Genitourinary Female genitourinary: Present: deferred - Integumentary Integumentary: warm - Musculoskeletal Musculoskeletal: strength equal bilaterally - Neurologic Neurologic: moves all extremities - Labs Lab Results: Laboratory Results - last 24 hr 12/06/18 12/09/18 12:49 10:25 Hgb 5.7 L* Hct 17.3 L* Crossmatch See Detail Medications & Allergies - Medications Allergies/Adverse Reactions: Allergies sulfamethoxazole [From Bactrim] Allergy (Intermediate, Verified 09/10/15 10:27) Hives trimethoprim [From Bactrim] Allergy (Intermediate, Verified 09/10/15 10:27) Hives aspirin Allergy (Mild, Verified 09/10/15 10:27) Hives Home Medications: Home Medications Medication Instructions Recorded Confirmed Last Taken Type Ibuprofen [Motrin] 800 mg PO BID 09/10/15 12/03/18 09/09/15 History Oxycodone HCl/Acetaminophen 1 tab PO PRN PRN 09/10/15 12/03/18 09/08/15 History [OxyCODONE-Acetaminophen 7.5-325] Tramadol HCl [traMADol] 50 mg PO HS 09/10/15 12/03/18 09/09/15 History Active Medications: Generic Name Dose Route Start Last Admin Trade Name Cleo PRN Reason Stop Dose Admin Acetaminophen 650 mg 12/04/18 06:04 12/06/18 20:24 Tylenol PO 650 mg Q6H PRN Administration Pain, Mild (1-3) Cyproheptadine HCl 4 mg 12/08/18 22:00 12/09/18 05:12 Periactin PO 4 mg Q8HR ESTEVAN Administration Diphenhydramine HCl 25 mg 12/02/18 14:34 12/08/18 17:19 Benadryl IV 25 mg Q6H PRN Administration Itching Folic Acid 1 mg 12/03/18 10:00 12/09/18 09:28 Folvite PO 1 mg QDAY ESTEVAN Administration Hydromorphone HCl 2 mg 12/02/18 14:02 12/09/18 05:11 Dilaudid IV 2 mg Q3H PRN Administration Pain , Severe (7-10) Ceftriaxone Sodium 1 gm in 50 mls @ 100 mls/hr 12/04/18 10:00 12/09/18 09:28 Rocephin/Ns 1 Gm/50 Ml IV 100 mls/hr Q24HR ESTEVAN Administration Protocol Dextrose/Sodium Chloride 1,000 mls @ 250 mls/hr 12/06/18 14:00 12/09/18 08:52 D5ns 0.2% IV 250 mls/hr DIRECT ESTEVAN Administration Sodium Chloride 500 mls @ 0 mls/hr 12/08/18 18:47 Nacl 0.9% 500 Ml IV 12/09/18 18:46 ONCE ESTEVAN As Directed Nicotine 21 mg 12/02/18 15:00 12/09/18 09:28 Habitrol TD 21 mg QDAY ESTEVAN Administration Ondansetron HCl 4 mg 12/02/18 22:31 12/06/18 18:43 Zofran IV 4 mg Q8H PRN Administration Nausea And Vomiting Oxycodone/Acetaminophen 2 tab 12/02/18 14:02 12/02/18 17:25 Percocet 5/325 PO 2 tab Q6H PRN Administration BREAKTHRU PAIN Pantoprazole Sodium 40 mg 12/02/18 16:00 12/09/18 09:28 Protonix PO 40 mg QDAY ESTEVAN Administration Sodium Chloride 10 ml 12/02/18 22:00 12/09/18 09:28 Sodium Chloride Flush Syringe 10 Ml IV 10 ml BID ESTEVAN Administration Sodium Chloride 10 ml 12/02/18 14:02 12/07/18 20:56 Sodium Chloride Flush Syringe 10 Ml IV 10 ml PRN PRN Administration LINE FLUSH
[2018-12-10] MEDS: DILAUDID IV PRN ×3 (06:29→20:24)
[2018-12-10] MEDS: PERIACTIN PO SCH ×3 (06:29→21:27)
[2018-12-10] MEDS ORDERED: NACL 0.9% 500 ML 500 ML ONE (07:43)
[2018-12-10] MEDS: TYLENOL PO PRN (08:04)
[2018-12-10] MEDS: HABITROL TD SCH (09:52)
[2018-12-10] MEDS: PROTONIX PO SCH (09:52)
[2018-12-10] MEDS: SODIUM CHLORIDE FLUSH SYRINGE 10 ML IV SCH ×2 (09:52→21:28)
[2018-12-10] MEDS: FOLVITE PO SCH (09:54)
[2018-12-10] MEDS: D5NS 0.2% 1,000 ML IV SCH ×3 (12:47→20:24)
[2018-12-10 15:38] LABS: Hematocrit 21.4 % (30.3-42.9)
--- NOTE | 2018-12-10 16:22 | Hem/Onc Progress Note ---
Assessment and Plan anemia pending prbc Patient seen/examined, resting in bed, c/o feels dizzy, probably due to severe symptomatic anemia,Hgb 5.7, [facility] She has a lot of Ab to her RBC.Will continue with IVF, to maintain some volume. pt says she tried Hydrea in past - had side effects and stopped d/w her reg trial while in hospital - pt refused says gets PRBC twice a year. reviewed Iron levels reports will await PRBC and return of dr Wise 12/10 - mcv high - pt says not on hydrea- b12 -folate levels got PRBC on 12/09 - hb 7 pt says she got total of 3 units prbc - Patient Problems (1) Sickle cell anemia Current Visit: Yes Status: Acute Subjective Date of service: 12/10/18 Principal diagnosis: sickle cell Interval history: s/p prbc - feeling better Objective - Constitutional Vitals: Last Vital Signs Temp 98.5 F 12/10/18 08:20 Pulse 73 12/10/18 08:20 Resp 16 12/10/18 08:20 BP 133/71 12/10/18 08:20 Pulse Ox 93 12/10/18 08:00 Pain Intensity (0-10): denies any pain General appearance: no acute distress Performance status: 2- selfcare, ambulatory - EENT Eyes: EOM intact ENT: clear oral mucosa Lymph node exam: negative cervical - Neck Neck: normal ROM - Respiratory Respiratory: bilateral: CTA - Cardiovascular Heart Sounds: Present: S1 & S2 Extremities: No edema - Gastrointestinal General gastrointestinal: Present: soft, non-tender Rectal Exam: deferred - Genitourinary Female genitourinary: Present: deferred - Integumentary Integumentary: warm - Musculoskeletal Musculoskeletal: strength equal bilaterally - Neurologic Neurologic: moves all extremities - Psychiatric Psychiatric: appropriate mood/affect - Labs Lab Results: Laboratory Results - last 24 hr 12/06/18 12/09/18 12/10/18 12:49 21:56 15:20 Hgb 7.0 L Hct 21.4 L Blood Type O POSITIVE Antibody Screen Positive Crossmatch See Detail See Detail Medications & Allergies - Medications Allergies/Adverse Reactions: Allergies sulfamethoxazole [From Bactrim] Allergy (Intermediate, Verified 09/10/15 10:27) Hives trimethoprim [From Bactrim] Allergy (Intermediate, Verified 09/10/15 10:27) Hives aspirin Allergy (Mild, Verified 09/10/15 10:27) Hives Home Medications: Home Medications Medication Instructions Recorded Confirmed Last Taken Type Ibuprofen [Motrin] 800 mg PO BID 09/10/15 12/03/18 09/09/15 History Oxycodone HCl/Acetaminophen 1 tab PO PRN PRN 09/10/15 12/03/18 09/08/15 History [OxyCODONE-Acetaminophen 7.5-325] Tramadol HCl [traMADol] 50 mg PO HS 09/10/15 12/03/18 09/09/15 History Active Medications: Generic Name Dose Route Start Last Admin Trade Name Freq PRN Reason Stop Dose Admin Acetaminophen 650 mg 12/04/18 06:04 12/10/18 08:04 Tylenol PO 650 mg Q6H PRN Administration Pain, Mild (1-3) Cyproheptadine HCl 4 mg 12/08/18 22:00 12/10/18 14:18 Periactin PO 4 mg Q8HR ESTEVAN Administration Diphenhydramine HCl 25 mg 12/02/18 14:34 12/08/18 17:19 Benadryl IV 25 mg Q6H PRN Administration Itching Folic Acid 1 mg 12/03/18 10:00 12/10/18 09:54 Folvite PO 1 mg QDAY ESTEVAN Administration Hydromorphone HCl 2 mg 12/02/18 14:02 12/10/18 14:18 Dilaudid IV 2 mg Q3H PRN Administration Pain , Severe (7-10) Dextrose/Sodium Chloride 1,000 mls @ 250 mls/hr 12/06/18 14:00 12/10/18 12:47 D5ns 0.2% IV 250 mls/hr DIRECT ESTEVAN Administration Nicotine 21 mg 12/02/18 15:00 12/10/18 09:52 Habitrol TD 21 mg QDAY ESTEVAN Administration Ondansetron HCl 4 mg 12/02/18 22:31 12/06/18 18:43 Zofran IV 4 mg Q8H PRN Administration Nausea And Vomiting Oxycodone/Acetaminophen 2 tab 12/02/18 14:02 12/02/18 17:25 Percocet 5/325 PO 2 tab Q6H PRN Administration BREAKTHRU PAIN Pantoprazole Sodium 40 mg 12/02/18 16:00 12/10/18 09:52 Protonix PO 40 mg QDAY ESTEVAN Administration Sodium Chloride 10 ml 12/02/18 22:00 12/10/18 09:52 Sodium Chloride Flush Syringe 10 Ml IV 10 ml BID ESTEVAN Administration Sodium Chloride 10 ml 12/02/18 14:02 12/07/18 20:56 Sodium Chloride Flush Syringe 10 Ml IV 10 ml PRN PRN Administration LINE FLUSH
[2018-12-11] MEDS: D5NS 0.2% 1,000 ML IV SCH ×6 (00:14→21:26)
[2018-12-11] MEDS: PERIACTIN PO SCH ×3 (06:30→20:59)
[2018-12-11 07:04] LABS: Hematocrit 22.6 % (30.3-42.9); Hemoglobin 7.7 gm/dl (10.1-14.3); Mean Corpuscular HGB Conc 34 % (30-34); Mean Corpuscular Volume 96 fl (79-97); Platelet Count 312 K/mm3 (140-440); Red Blood Count 2.36 M/mm3 (3.65-5.03)
[2018-12-11 07:05] LABS: Red Cell Distribution Width 23.4 % (13.2-15.2)
[2018-12-11] MEDS: DILAUDID IV PRN ×3 (07:06→19:00)
[2018-12-11 07:20] LABS: Alanine Aminotransferase 17 units/L (7-56); Albumin 3.4 g/dL (3.9-5); BUN/Creatinine Ratio 8; Blood Urea Nitrogen 7 mg/dL (7-17); Calcium 8.8 mg/dL (8.4-10.2); Hemolysis Index 2
[2018-12-11 08:41] LABS: Basophils # (Auto) 0.2 K/mm3 (0.0-0.1); Eosinophils # (Auto) 0.3 K/mm3 (0.0-0.4); Eosinophils % (Auto) 2.7 % (0.0-4.3); Monocytes # (Auto) 1.1 K/mm3 (0.0-0.8); Monocytes % (Auto) 10.2 % (0.0-7.3)
[2018-12-11] MEDS: SODIUM CHLORIDE FLUSH SYRINGE 10 ML IV SCH ×2 (09:33→20:59)
[2018-12-11] MEDS: PROTONIX PO SCH (09:33)
[2018-12-11] MEDS: HABITROL TD SCH (09:33)
[2018-12-11] MEDS: FOLVITE PO SCH (09:33)
[2018-12-11 10:33] LABS: Myelocytes # (Manual) 0.1 K/mm3; Total Cells Counted 100
[2018-12-11 10:35] LABS: Platelet Estimate Consistent w Auto; Sickle Cells 2+; Target Cells 2+
--- NOTE | 2018-12-11 17:21 | Hem/Onc Progress Note ---
Assessment and Plan anemia pending prbc Patient seen/examined, resting in bed, c/o feels dizzy, probably due to severe symptomatic anemia,Hgb 5.7, [facility] She has a lot of Ab to her RBC.Will continue with IVF, to maintain some volume. pt says she tried Hydrea in past - had side effects and stopped d/w her reg trial while in hospital - pt refused says gets PRBC twice a year. reviewed Iron levels reports will await PRBC and return of dr Wise 12/10 - mcv high - pt says not on hydrea- b12 -folate levels got PRBC on 12/09 - hb 7 pt says she got total of 3 units prbc 12/11 still has pain issues hb 7.7 b12- folate normal Dr Wise will be back tomorrow - Patient Problems (1) Sickle cell anemia Current Visit: Yes Status: Acute Subjective Date of service: 12/11/18 Principal diagnosis: anemia Interval history: feeling better has pain issues Objective - Constitutional Vitals: Last Vital Signs Temp 98.2 F 12/11/18 16:11 Pulse 72 12/11/18 16:11 Resp 16 12/11/18 16:11 BP 130/66 12/11/18 16:11 Pulse Ox 95 12/11/18 16:11 Pain Intensity (0-10): 1/10 General appearance: no acute distress Performance status: 3-limited selfcare - EENT Eyes: EOM intact ENT: clear oral mucosa - Neck Neck: normal ROM - Respiratory Respiratory effort: Positive: normal Respiratory: bilateral: CTA - Cardiovascular Heart Sounds: Present: S1 & S2 Extremities: No edema - Gastrointestinal General gastrointestinal: Present: soft Rectal Exam: deferred - Genitourinary Female genitourinary: Present: deferred - Integumentary Integumentary: warm - Musculoskeletal Musculoskeletal: strength equal bilaterally - Neurologic Neurologic: moves all extremities - Labs Lab Results: Laboratory Results - last 24 hr 12/09/18 12/11/18 12/11/18 21:56 06:31 06:31 WBC 10.4 RBC 2.36 L Hgb 7.7 L Hct 22.6 L MCV 96 MCH 33 H MCHC 34 RDW 23.4 H Plt Count 312 [place] % (Auto) 10.2 H Eos % (Auto) 2.7 [place] # 1.1 H Eos # 0.3 Baso # 0.2 H Add Manual Diff Complete Total Counted 100 Seg Neutrophils % 58.1 Seg Neuts % (Manual) 43.0 Band Neutrophils % 0 Lymphocytes % (Manual) 25.0 Reactive Lymphs % (Man) 2.0 Monocytes % (Manual) 18.0 H Eosinophils % (Manual) 9.0 H Basophils % (Manual) 1.0 Metamyelocytes % 1.0 Myelocytes % 1.0 Promyelocytes % 0 Blast Cells % 0 Nucleated RBC % 35.0 H Seg Neutrophils # 6.0 Seg Neutrophils # Man 4.5 Band Neutrophils # 0.0 Lymphocytes # (Manual) 2.6 Abs React Lymphs (Man) 0.2 Monocytes # (Manual) 1.9 H Eosinophils # (Manual) 0.9 H Basophils # (Manual) 0.1 Metamyelocytes # 0.1 Myelocytes # 0.1 Promyelocytes # 0.0 Blast Cells # 0.0 WBC Morphology Not Reportable Hypersegmented Neuts Not Reportable Hyposegmented Neuts Not Reportable Hypogranular Neuts Not Reportable Smudge Cells Not Reportable Toxic Granulation Not Reportable Toxic Vacuolation Not Reportable Dohle Bodies Not Reportable Pelger-Huet Anomaly Not Reportable Srikanth Rods Not Reportable Platelet Estimate Consistent w auto Clumped Platelets Not Reportable Plt Clumps, EDTA Not Reportable Large Platelets Not Reportable Giant Platelets Not Reportable Platelet Satelliting Not Reportable Plt Morphology Comment Not Reportable RBC Morphology Not Reportable Dimorphic RBCs Not Reportable Polychromasia 1+ Hypochromasia Not Reportable Poikilocytosis Not Reportable Anisocytosis Not Reportable Microcytosis Not Reportable Macrocytosis Not Reportable Spherocytes Not Reportable Pappenheimer Bodies Not Reportable Sickle Cells 2+ Target Cells 2+ Tear Drop Cells Not Reportable Ovalocytes Not Reportable Helmet Cells Not Reportable Manzo-Dundalk Bodies Not Reportable [place] Rings Not Reportable Kayla Cells Not Reportable Bite Cells Not Reportable Crenated Cell Not Reportable Elliptocytes Not Reportable Acanthocytes (Spur) Not Reportable Rouleaux Not Reportable Hemoglobin C Crystals Not Reportable Schistocytes Not Reportable Malaria parasites Not Reportable Damion Bodies Not Reportable Hem Pathologist Commnt No Sodium 141 Potassium 3.7 Chloride 109.8 H Carbon Dioxide 21 L Anion Gap 14 BUN 7 Creatinine 0.9 Estimated GFR > 60 BUN/Creatinine Ratio 8 Glucose 106 H Calcium 8.8 Total Bilirubin 1.10 AST 13 ALT 17 Alkaline Phosphatase 80 Total Protein 6.8 Albumin 3.4 L Albumin/Globulin Ratio 1.0 Vitamin B12 Folate Antibody Identification Non-specific Antibody Crossmatch See Detail 12/11/18 12/11/18 06:31 06:31 WBC RBC Hgb Hct MCV MCH MCHC RDW Plt Count [place] % (Auto) Eos % (Auto) [place] # Eos # Baso # Add Manual Diff Total Counted Seg Neutrophils % Seg Neuts % (Manual) Band Neutrophils % Lymphocytes % (Manual) Reactive Lymphs % (Man) Monocytes % (Manual) Eosinophils % (Manual) Basophils % (Manual) Metamyelocytes % Myelocytes % Promyelocytes % Blast Cells % Nucleated RBC % Seg Neutrophils # Seg Neutrophils # Man Band Neutrophils # Lymphocytes # (Manual) Abs React Lymphs (Man) Monocytes # (Manual) Eosinophils # (Manual) Basophils # (Manual) Metamyelocytes # Myelocytes # Promyelocytes # Blast Cells # WBC Morphology Hypersegmented Neuts Hyposegmented Neuts Hypogranular Neuts Smudge Cells Toxic Granulation Toxic Vacuolation Dohle Bodies Pelger-Huet Anomaly Srikanth Rods Platelet Estimate Clumped Platelets Plt Clumps, EDTA Large Platelets Giant Platelets Platelet Satelliting Plt Morphology Comment RBC Morphology Dimorphic RBCs Polychromasia Hypochromasia Poikilocytosis Anisocytosis Microcytosis Macrocytosis Spherocytes Pappenheimer Bodies Sickle Cells Target Cells Tear Drop Cells Ovalocytes Helmet Cells Manzo-Dundalk Bodies [place] Rings Kayla Cells Bite Cells Crenated Cell Elliptocytes Acanthocytes (Spur) Rouleaux Hemoglobin C Crystals Schistocytes Malaria parasites Damion Bodies Hem Pathologist Commnt Sodium Potassium Chloride Carbon Dioxide Anion Gap BUN Creatinine Estimated GFR BUN/Creatinine Ratio Glucose Calcium Total Bilirubin AST ALT Alkaline Phosphatase Total Protein Albumin Albumin/Globulin Ratio Vitamin B12 337.1 Folate 11.42 Antibody Identification Crossmatch Medications & Allergies - Medications Allergies/Adverse Reactions: Allergies sulfamethoxazole [From Bactrim] Allergy (Intermediate, Verified 09/10/15 10:27) Hives trimethoprim [From Bactrim] Allergy (Intermediate, Verified 09/10/15 10:27) Hives aspirin Allergy (Mild, Verified 09/10/15 10:27) Hives Home Medications: Home Medications Medication Instructions Recorded Confirmed Last Taken Type Ibuprofen [Motrin] 800 mg PO BID 09/10/15 12/03/18 09/09/15 History Oxycodone HCl/Acetaminophen 1 tab PO PRN PRN 09/10/15 12/03/18 09/08/15 History [OxyCODONE-Acetaminophen 7.5-325] Tramadol HCl [traMADol] 50 mg PO HS 09/10/15 12/03/18 09/09/15 History Active Medications: Generic Name Dose Route Start Last Admin Trade Name Freq PRN Reason Stop Dose Admin Acetaminophen 650 mg 12/04/18 06:04 12/10/18 08:04 Tylenol PO 650 mg Q6H PRN Administration Pain, Mild (1-3) Cyproheptadine HCl 4 mg 12/08/18 22:00 12/11/18 13:23 Periactin PO 4 mg Q8HR ESTEVAN Administration Diphenhydramine HCl 25 mg 12/02/18 14:34 12/08/18 17:19 Benadryl IV 25 mg Q6H PRN Administration Itching Folic Acid 1 mg 12/03/18 10:00 12/11/18 09:33 Folvite PO 1 mg QDAY ESTEVAN Administration Hydromorphone HCl 2 mg 12/02/18 14:02 12/11/18 13:24 Dilaudid IV 2 mg Q3H PRN Administration Pain , Severe (7-10) Dextrose/Sodium Chloride 1,000 mls @ 250 mls/hr 12/06/18 14:00 12/11/18 13:14 D5ns 0.2% IV 250 mls/hr DIRECT ESTEVAN Administration Nicotine 21 mg 12/02/18 15:00 12/11/18 09:33 Habitrol TD 21 mg QDAY ESTEVAN Administration Ondansetron HCl 4 mg 12/02/18 22:31 12/06/18 18:43 Zofran IV 4 mg Q8H PRN Administration Nausea And Vomiting Oxycodone/Acetaminophen 2 tab 12/02/18 14:02 12/02/18 17:25 Percocet 5/325 PO 2 tab Q6H PRN Administration BREAKTHRU PAIN Pantoprazole Sodium 40 mg 12/02/18 16:00 12/11/18 09:33 Protonix PO 40 mg QDAY ESTEVAN Administration Sodium Chloride 10 ml 12/02/18 22:00 12/11/18 09:33 Sodium Chloride Flush Syringe 10 Ml IV 10 ml BID ESTEVAN Administration Sodium Chloride 10 ml 12/02/18 14:02 12/07/18 20:56 Sodium Chloride Flush Syringe 10 Ml IV 10 ml PRN PRN Administration LINE FLUSH
[2018-12-12] MEDS: D5NS 0.2% 1,000 ML IV SCH ×6 (01:00→21:32)
[2018-12-12] MEDS: DILAUDID IV PRN ×4 (05:06→21:33)
[2018-12-12] MEDS: PERIACTIN PO SCH ×3 (06:27→21:32)
[2018-12-12] MEDS: FOLVITE PO SCH (09:00)
[2018-12-12] MEDS: SODIUM CHLORIDE FLUSH SYRINGE 10 ML IV SCH ×2 (09:01→21:33)
[2018-12-12] MEDS: PROTONIX PO SCH (09:01)
[2018-12-12] MEDS: HABITROL TD SCH (09:01)
--- NOTE | 2018-12-12 22:55 | Progress Note ---
Assessment and Plan - Patient Problems (1) Sickle cell anemia Current Visit: Yes Status: Acute Plan to address problem: same as bellow.[facility]. see notes. i unit now ready. received total of 3units. (2) Sickle cell anemia with crisis Current Visit: Yes Status: Acute Plan to address problem: monitor, correct labs, as needed. (3) Dehydration Status: Acute Plan to address problem: hydration Subjective Date of service: 12/12/18 Principal diagnosis: anemia Interval history: Patient seen/examined, resting in bed, c/o feels dizzy, probably due to severe symptomatic anemia,Hgb 5.9, [facility]. She has a lot of Ab to her RBC.Will continue with IVF, to maintain some volume.I have cautioned her, and even offered her a bedside commode, but she declined. Patient seen/examined, resting in bed, spiked fever last night, cultures in progress. Still no matched blood yet [facility] the [facility]. patient seen/examined, resting in bed, still weak, and still no matched blood. I have spoken to the blood bank, and as per the [facility], 1matched unit found, and will be shipped from [facility] in the next day ,or so.She has tremendous amount of rare antibodies. Patient seen/examined, resting in bed, case d/w her, and i have d/w the [facility] bank. 1unit of lood ready at the blood bank since 6pm. There may be another unit possibly avalable in a day,or so. I will proceed to transfuse with the ready blood. patient is pushing to go home, and if the remaining blood is not ready by tomorrow, will d/c her home. patient seen/examined, resting in bed, s/p 1unit PRBC, and about to get the second unit. As per [facility], no more matched unit blood avaliable. will recheck H/h in am, and if she feels better, will d/c home, and follow up ion the office. Patient seen/examined, resting in bed, labs recviewed, case d/w her regarding the need for more blood. She is aware that it may take a longer time as per [facility]. Patient has a lot ab No other complaints. Dr Yip will cover my rounds from Wednesday to wednesday. i am avalable on the phone. This same notice is left on the floor.. Patient seen/examined, resting in bed, labs reviewed, case d/w her. Current Hgb 7.7, after total of 3uPRBC.Energy still low, will continue with hydration, but if she insists on going home, will d/c her home. Objective - Constitutional Vitals: Vital Signs - 12hr 12/12/18 12/12/18 11:33 17:15 Temperature 99.2 F 99.4 F Pulse Rate 80 69 Respiratory 20 20 Rate Blood Pressure 117/63 132/68 O2 Sat by Pulse 95 97 Oximetry General appearance: Present: mild distress, well-nourished - EENT Eyes: PERRL, EOM intact ENT: hearing intact, clear oral mucosa Ears: bilateral: normal - Neck Neck: supple, normal ROM - Respiratory Respiratory effort: normal Respiratory: bilateral: CTA - Breasts Breasts: deferred - Cardiovascular Rhythm: regular Heart Sounds: Present: S1 & S2. Absent: gallop, rub Extremities: pulses intact, No edema, normal color, Full ROM - Gastrointestinal General gastrointestinal: Present: soft, non-tender, non-distended, normal bowel sounds Rectal Exam: deferred - Genitourinary Female genitourinary: deferred - Integumentary Integumentary: clear, warm, dry - Musculoskeletal Musculoskeletal: 1, strength equal bilaterally - Neurologic Neurologic: moves all extremities - Psychiatric Psychiatric: memory intact, appropriate mood/affect, intact judgment & insight - Labs CBC & Chem 7: 12/11/18 06:31 12/11/18 06:31 Medications & Allergies - Medications Allergies/Adverse Reactions: Allergies sulfamethoxazole [From Bactrim] Allergy (Intermediate, Verified 09/10/15 10:27) Hives trimethoprim [From Bactrim] Allergy (Intermediate, Verified 09/10/15 10:27) Hives aspirin Allergy (Mild, Verified 09/10/15 10:27) Hives Home Medications: Home Medications Medication Instructions Recorded Confirmed Last Taken Type Ibuprofen [Motrin] 800 mg PO BID 09/10/15 12/03/18 09/09/15 History Oxycodone HCl/Acetaminophen 1 tab PO PRN PRN 09/10/15 12/03/18 09/08/15 History [OxyCODONE-Acetaminophen 7.5-325] Tramadol HCl [traMADol] 50 mg PO HS 09/10/15 12/03/18 09/09/15 History Active Medications: Generic Name Dose Route Start Last Admin Trade Name Cleo PRN Reason Stop Dose Admin Acetaminophen 650 mg 12/04/18 06:04 12/10/18 08:04 Tylenol PO 650 mg Q6H PRN Administration Pain, Mild (1-3) Cyproheptadine HCl 4 mg 12/08/18 22:00 12/12/18 21:32 Periactin PO 4 mg Q8HR ESTEVAN Administration Diphenhydramine HCl 25 mg 12/02/18 14:34 12/08/18 17:19 Benadryl IV 25 mg Q6H PRN Administration Itching Folic Acid 1 mg 12/03/18 10:00 12/12/18 09:00 Folvite PO 1 mg QDAY ESTEVAN Administration Hydromorphone HCl 2 mg 12/02/18 14:02 12/12/18 21:33 Dilaudid IV 2 mg Q3H PRN Administration Pain , Severe (7-10) Dextrose/Sodium Chloride 1,000 mls @ 250 mls/hr 12/06/18 14:00 12/12/18 21:32 D5ns 0.2% IV 250 mls/hr DIRECT ESTEVAN Administration Nicotine 21 mg 12/02/18 15:00 12/12/18 09:01 Habitrol TD 21 mg QDAY ESTEVAN Administration Ondansetron HCl 4 mg 12/02/18 22:31 12/06/18 18:43 Zofran IV 4 mg Q8H PRN Administration Nausea And Vomiting Oxycodone/Acetaminophen 2 tab 12/02/18 14:02 12/02/18 17:25 Percocet 5/325 PO 2 tab Q6H PRN Administration BREAKTHRU PAIN Pantoprazole Sodium 40 mg 12/02/18 16:00 12/12/18 09:01 Protonix PO 40 mg QDAY ESTEVAN Administration Sodium Chloride 10 ml 12/02/18 22:00 12/12/18 21:33 Sodium Chloride Flush Syringe 10 Ml IV 10 ml BID ESTEVAN Administration Sodium Chloride 10 ml 12/02/18 14:02 12/07/18 20:56 Sodium Chloride Flush Syringe 10 Ml IV 10 ml PRN PRN Administration LINE FLUSH
[2018-12-13] MEDS: D5NS 0.2% 1,000 ML IV SCH ×5 (01:58→22:29)
[2018-12-13] MEDS: DILAUDID IV PRN ×4 (04:50→22:42)
[2018-12-13] MEDS: PERIACTIN PO SCH ×3 (06:21→21:26)
[2018-12-13] MEDS: HABITROL TD SCH (10:29)
[2018-12-13] MEDS: FOLVITE PO SCH (10:29)
[2018-12-13] MEDS: PROTONIX PO SCH (10:29)
[2018-12-13] MEDS: SODIUM CHLORIDE FLUSH SYRINGE 10 ML IV SCH ×2 (10:33→21:27)
--- NOTE | 2018-12-13 22:20 | Progress Note ---
Assessment and Plan - Patient Problems (1) Sickle cell anemia Current Visit: Yes Status: Acute Plan to address problem: same as bellow.[facility]. see notes. i unit now ready. received total of 3units. (2) Sickle cell anemia with crisis Current Visit: Yes Status: Acute Plan to address problem: monitor, correct labs, as needed. (3) Dehydration Status: Acute Plan to address problem: hydration Subjective Date of service: 12/13/18 Principal diagnosis: anemia Interval history: Patient seen/examined, resting in bed, c/o feels dizzy, probably due to severe symptomatic anemia,Hgb 5.9, [facility]. She has a lot of Ab to her RBC.Will continue with IVF, to maintain some volume.I have cautioned her, and even offered her a bedside commode, but she declined. Patient seen/examined, resting in bed, spiked fever last night, cultures in progress. Still no matched blood [facility] the [facility]. patient seen/examined, resting in bed, still weak, and still no matched blood. I have spoken to the blood bank, and as per the [facility], 1matched unit found, and will be shipped from [facility] in the next day ,or so.She has tremendous amount of rare antibodies. Patient seen/examined, resting in bed, case d/w her, and i have d/w the [facility] bank. 1unit of lood ready at the blood bank since 6pm. There may be another unit possibly avalable in a day,or so. I will proceed to transfuse with the ready blood. patient is pushing to go home, and if the remaining blood is not ready by tomorrow, will d/c her home. patient seen/examined, resting in bed, s/p 1unit PRBC, and about to get the second unit. As per [facility], no more matched unit blood avaliable. will recheck H/h in am, and if she feels better, will d/c home, and follow up ion the office. Patient seen/examined, resting in bed, labs recviewed, case d/w her regarding the need for more blood. She is aware that it may take a longer time as per [facility]. Patient has a lot ab No other complaints. Dr Yip will cover my rounds from Wednesday to wednesday. i am avalable on the phone. This same notice is left on the floor.. Patient seen/examined, resting in bed, labs reviewed, case d/w her. Current Hgb 7.7, after total of 3uPRBC.Energy still low, will continue with hydration, but if she insists on going home, will d/c her home. Patient seen/examined, resting inbed, c/o feels a bit better from yesterday. Her MOM will come tomorrow evening to pick her up . I do not want the patient to drive her self home . Objective - Constitutional Vitals: Vital Signs - 12hr 12/13/18 12/13/18 12/13/18 11:25 11:26 16:39 Temperature 98.7 F 99.5 F Pulse Rate 78 105 H Respiratory 20 20 Rate Blood Pressure 122/64 146/72 O2 Sat by Pulse 98 97 Oximetry 12/13/18 12/13/18 18:38 19:15 Temperature Pulse Rate 79 Respiratory Rate Blood Pressure O2 Sat by Pulse 97 97 Oximetry General appearance: Present: mild distress, well-nourished - EENT Eyes: PERRL, EOM intact ENT: hearing intact, clear oral mucosa Ears: bilateral: normal - Neck Neck: supple, normal ROM - Respiratory Respiratory effort: normal Respiratory: bilateral: CTA - Breasts Breasts: deferred - Cardiovascular Rhythm: regular Heart Sounds: Present: S1 & S2. Absent: gallop, rub Extremities: pulses intact, No edema, normal color, Full ROM - Gastrointestinal General gastrointestinal: Present: soft, non-tender, non-distended, normal bowel sounds Rectal Exam: deferred - Genitourinary Female genitourinary: deferred - Integumentary Integumentary: clear, warm, dry - Musculoskeletal Musculoskeletal: 1, strength equal bilaterally - Neurologic Neurologic: moves all extremities - Psychiatric Psychiatric: memory intact, appropriate mood/affect, intact judgment & insight - Labs CBC & Chem 7: 12/11/18 06:31 12/11/18 06:31 Medications & Allergies - Medications Allergies/Adverse Reactions: Allergies sulfamethoxazole [From Bactrim] Allergy (Intermediate, Verified 09/10/15 10:27) Hives trimethoprim [From Bactrim] Allergy (Intermediate, Verified 09/10/15 10:27) Hives aspirin Allergy (Mild, Verified 09/10/15 10:27) Hives Home Medications: Home Medications Medication Instructions Recorded Confirmed Last Taken Type Ibuprofen [Motrin] 800 mg PO BID 09/10/15 12/03/18 09/09/15 History Oxycodone HCl/Acetaminophen 1 tab PO PRN PRN 09/10/15 12/03/18 09/08/15 History [OxyCODONE-Acetaminophen 7.5-325] Tramadol HCl [traMADol] 50 mg PO HS 09/10/15 12/03/18 09/09/15 History Active Medications: Generic Name Dose Route Start Last Admin Trade Name Freq PRN Reason Stop Dose Admin Acetaminophen 650 mg 12/04/18 06:04 12/10/18 08:04 Tylenol PO 650 mg Q6H PRN Administration Pain, Mild (1-3) Cyproheptadine HCl 4 mg 12/08/18 22:00 12/13/18 21:26 Periactin PO 4 mg Q8HR ESTEVAN Administration Diphenhydramine HCl 25 mg 12/02/18 14:34 12/08/18 17:19 Benadryl IV 25 mg Q6H PRN Administration Itching Folic Acid 1 mg 12/03/18 10:00 12/13/18 10:29 Folvite PO 1 mg QDAY ESTEVAN Administration Hydromorphone HCl 2 mg 12/02/18 14:02 12/13/18 18:01 Dilaudid IV 2 mg Q3H PRN Administration Pain , Severe (7-10) Dextrose/Sodium Chloride 1,000 mls @ 250 mls/hr 12/06/18 14:00 12/13/18 18:03 D5ns 0.2% IV 250 mls/hr DIRECT ESTEVAN Administration Nicotine 21 mg 12/02/18 15:00 12/13/18 10:29 Habitrol TD 21 mg QDAY ESTEVAN Administration Ondansetron HCl 4 mg 12/02/18 22:31 12/06/18 18:43 Zofran IV 4 mg Q8H PRN Administration Nausea And Vomiting Oxycodone/Acetaminophen 2 tab 12/02/18 14:02 12/02/18 17:25 Percocet 5/325 PO 2 tab Q6H PRN Administration BREAKTHRU PAIN Pantoprazole Sodium 40 mg 12/02/18 16:00 12/13/18 10:29 Protonix PO 40 mg QDAY ESTEVAN Administration Sodium Chloride 10 ml 12/02/18 22:00 12/13/18 21:27 Sodium Chloride Flush Syringe 10 Ml IV 10 ml BID ESTEVAN Administration Sodium Chloride 10 ml 12/02/18 14:02 12/07/18 20:56 Sodium Chloride Flush Syringe 10 Ml IV 10 ml PRN PRN Administration LINE FLUSH
[2018-12-14] MEDS: PERIACTIN PO SCH ×2 (06:23→15:01)
[2018-12-14] MEDS: D5NS 0.2% 1,000 ML IV SCH ×3 (06:24→18:12)
[2018-12-14] MEDS: HABITROL TD SCH (10:17)
[2018-12-14] MEDS: DILAUDID IV PRN ×2 (10:17→16:29)
[2018-12-14] MEDS: PROTONIX PO SCH (10:18)
[2018-12-14] MEDS: FOLVITE PO SCH (10:18)
[2018-12-14] MEDS: SODIUM CHLORIDE FLUSH SYRINGE 10 ML IV SCH (10:19)
[2018-12-14 12:03] VITALS: BP 127/62
--- NOTE | 2018-12-14 18:56 | Discharge Summary ---
Providers - Providers Date of Admission: 12/02/18 14:35 Date of discharge: 12/14/18 Attending physician: JANELLE FLORES 12/10/18 07:32 Consult to Physician [CONS] Routine Comment: Consulting Provider: SALMA ORTIZ Physician Instructions: Reason For Exam: covering Primary care physician: JANELLE FLORES Hospitalization Reason for admission: SCD/Pain crisis./Anemia. Hospital course: Patient seen/examined, resting ok in bed, eating. she states feels better again today, denies any new issues, no chest pain at this time. her mom is coming to pick her up.. She will continue with her pain meds at home, and her oxygen at home.She had presented to the office with diffuse pain, admitted, had total of 3units of PRBCs in a span of nearly 2weeks, due to multiple rare AB to her RBC.She will go to ER if any problems, once at home. Disposition: - TO HOME OR SELFCARE - Discharge Diagnoses (1) Sickle cell anemia Status: Chronic (2) Sickle cell anemia with crisis Status: Resolved (3) Dehydration Status: Resolved Core Measure Documentation - Palliative Care Palliative Care/ Comfort Measures: Not Applicable - Core Measures Any of the following diagnoses?: none Exam - Constitutional Vitals: Temp Pulse Resp BP Pulse Ox 98.7 F 73 20 127/62 96 12/14/18 11:32 12/14/18 11:32 12/14/18 16:29 12/14/18 11:32 12/14/18 11:39 General appearance: Present: no acute distress, well-nourished - EENT Eyes: Present: PERRL ENT: hearing intact, clear oral mucosa - Neck Neck: Present: supple, normal ROM - Respiratory Respiratory effort: normal Respiratory: bilateral: CTA - Cardiovascular Heart Sounds: Present: S1 & S2. Absent: rub, click - Extremities Extremities: pulses symmetrical, No edema Peripheral Pulses: within normal limits - Abdominal General gastrointestinal: Present: soft, non-tender, non-distended, normal bowel sounds Female genitourinary: Present: deferred - Rectal Rectal Exam: deferred - Integumentary Integumentary: Present: clear, warm, dry - Musculoskeletal Musculoskeletal: gait normal, strength equal bilaterally - Psychiatric Psychiatric: appropriate mood/affect, intact judgment & insight - Neurologic Neurologic: CNII-XII intact, moves all extremities Plan Activity: no restrictions Diet: regular Follow up with: JANELLE FLORES DO [Primary Care Provider] - 7 Days
[2018-12-14] MEDS ORDERED: TRIPLE ANTIBIOTIC TP ONE (19:00)
[2018-12-14] MEDS ORDERED: FLUSH HEPARIN IV ONE (19:00)
== END 2018-12-14 19:45 | disposition home or self-care (01) | DRG 812 ==
LOC: 3A 13:33 → UNDOADMIN 13:33 → 3A 14:35
PROVIDERS: ADMIT Internal Medicine Hematology & Oncology; ATTEND Internal Medicine Hematology & Oncology
PROC: 30233N1 Transfusion of Nonautologous Red Blood Cells into Peripheral Vein, Percutaneous Approach (ICD-10-PCS; principal; 2018-12-06)
DX: D57.00 Hb-SS disease with crisis, unspecified (principal); E86.0 Dehydration; Z88.6 Allergy status to analgesic agent; Z79.899 Other long term (current) drug therapy; Z88.2 Allergy status to sulfonamides
CPT/HCPCS: 36415; 80053; 82607; 82747; 83550; 83615; 85007; 85014; 85018; 85025; 85045; 85660; 86850; 86870; 86900; 86901; 86920; 86922; 87040; 87086; 94760; G0378; A6250; J0696; J1170; J1200; J1642; J1644; J2405; J7040; J7070; J7131; P9016